=== PATIENT | male | born 1995 | race Caucasian/White ===

== ENCOUNTER 2021-01-11 13:58 | Outpatient (REF) | payer OTHER, SELFPAY ==
[2021-01-12 07:49] LABS: Syphilis Screen Nonreactive (Nonreactive)
[2021-01-12 08:08] LABS: HIV AB/AG Nonreactive (Nonreactive); HIV Num 1 0.08 S/CO (0.00-0.99); ~Hepatitis B Surface Antibody NONREACTIVE (Nonreactive)
[2021-01-12 08:55] LABS: HBc Num1 0.05 S/CO (0.00-0.79); HBsAGNum1 0.19 S/CO (0.00-0.99); Hepatitis B Core Antibody Nonreactive (Nonreactive); Hepatitis B Surface Antigen Negative (Negative); ~HepC Num1 0.06 S/CO (0.00-0.79); ~Hepatitis C Antibody Nonreactive (Nonreactive)
[2021-01-12 09:06] LABS: Hepatitis A Antibody IgM 0.12 Index (0-0.79); ~Hepatitis A Antibody IgM Nonreactive (Nonreactive)
[2021-01-18 13:37] LABS: HSV 1 IgM IFA Negative (Negative); HSV 2 IgM IFA Negative (Negative)
== END 2021-01-11 13:59 | disposition home or self-care (01) ==
LOC: HO.HMGCLDS 13:58
PROVIDERS: PCP Internal Medicine; Visit Provider Hospitalist
DX: Z01.84 Encounter for antibody response examination (principal); Z11.4 Encounter for screening for human immunodeficiency virus [HIV]; Z11.3 Encounter for screening for infections with a predominantly sexual mode of transmission; Z11.59 Encounter for screening for other viral diseases; Z72.51 High risk heterosexual behavior
CPT/HCPCS: 36415; 86695; 86696; 86704; 86706; 86709; 86780; 86803; 87340; 87389

== ENCOUNTER 2021-04-23 16:43 | Outpatient (REF) | payer OTHER, SELFPAY | END 2021-04-23 16:44 | disposition home or self-care (01) | LOC: HO.LNP 16:43 | PROVIDERS: Visit Provider Physician Assistant Medical | DX: J01.90 Acute sinusitis, unspecified (principal); Z20.822 Contact with and (suspected) exposure to COVID-19 | CPT/HCPCS: U0003; U0005 ==

== ENCOUNTER 2024-01-29 13:48 | Emergency (ER) | payer OTHER, SELFPAY ==
--- NOTE | 2024-01-29 14:17 | ED_ITS ---
HPI - Abdominal Pain General Chief Complaint: Abdominal Pain Stated Complaint: abd pain Time Seen by Provider: 01/29/24 14:23 Source: patient Mode of arrival: ambulatory Limitations: no limitations History of Present Illness ED Provider: Rosmery Lozano PA-C HPI narrative: 28 yo male presents to the ER for evaluation of LUQ and epigastric pain that started 1 hour ago and has since subsided after he took pepto bismol. history of multiple episodes similar to this in the past, has followed with GI at [facility] in the past. mild associated nausea but no vomiting. he reports recently diagnosed with covid and has been taking tylenol and motrin around the clock. no current pain at the time of evaluation. no chest pain, SOB, fever, chills, or urinary symptoms. MD elicited complaint: abdominal pain Pertinent past history: other (hx abdominal pain in the past that were attributed to anxiety per his report) Onset (ago): hour(s) Pain Consistency: now resolved Location: epigastric and LUQ Severity: moderate Quality: stabbing Radiation: none Migration to: no migration Exacerbating factors: nothing Relieving factors: medication Context: history of similar episodes Associated symptoms: nausea Related Data Home Medications ?Medication ?Instructions ?Recorded ?Confirmed clobetasol 0.05 % topical cream g topical BID 04/23/21 Previous Rx's ?Medication ?Instructions ?Recorded albuterol sulfate 90 mcg/actuation 1 inh inhalation QID PRN shortness 12/10/21 aerosol inhaler of breath or wheezing #6.7 grams pantoprazole 40 mg tablet,delayed 40 mg PO DAILY #14 tabs 01/29/24 release (Protonix) Allergies Allergy/AdvReac Type Severity Reaction Status Date / Time No Known Allergies Allergy Verified 01/29/24 14:22 Review of Systems Review of Systems Yes all other systems are reviewed and are negative [facility] Social History Social History Patient Tobacco Use Status: Former Tobacco user Advance Directives: No Advance Directives Information Provided: Yes Physical Exam ED Vital Signs: Vital Signs - 24 hr 01/29/24 14:18 Temperature 96.9 F Pulse Rate 96 Respiratory Rate 16 Blood Pressure 144/89 H Pulse Oximetry 97 BMI result Body Mass Index 38.2 Appearance: Alert. Oriented X3. No acute distress. HEENT: normal external inspection Neck: Normal inspection. Neck supple. CVS: Normal heart rate and rhythm. Pulses normal. Respiratory: No respiratory distress. Breath sounds normal. Abdomen: Soft and nontender. +BS x4 Skin: Skin warm and dry. Normal skin color. Normal skin turgor. No rashes. Extremities: No lower extremity edema. No joint swelling. Neuro/psych: Oriented X 3. grossly normal, nonfocal Medical Decision Making Medical Decision Making MDM Narrative: 28 yo male presenting to the ER for evaluation of transient episode of LUQ/epigastric pain that lasted about an hour today. in the setting of COVID + and taking NSAIDs. abd exam today is benign. not having any current pain. low clinical suspicion for pancreatitis, perforation or an acute abdominal process. likely gastritis vs PUD given NSAID use. at this time patient is stable for d/c home with monitoring of symptoms, dietary modifications, stopping NSAID and starting PPI. discussed return precautions and patient agrees w/ plan Differential Diagnosis Differential Diagnoses: The differential diagnosis associated with the presentation includes gastritis, PUD, GERD, pancreatitis, perforation, gallstones, biliary colic External Record Review External record reviewed: Prior outpatient labs Tests considered The following testing was considered but not selected: CBC, CMP, lipase Prescription Management I considered prescription management with: Other (PPI) Chronic Conditions Patient?s care impacted by: Other (abdominal pains) Critical Care Time Critical Care Time Critical Care Time: No Discharge Plan Discharge Clinical Impression: COVID-19 Abdominal pain Qualifiers: Abdominal location: left upper quadrant Qualified Code(s): R10.12 - Left upper quadrant pain Patient Disposition: Home, Self-Care Instructions: Abdominal Pain (ED) Additional Instructions: Your exam & history today were reassuring. Your pain is most likely due to gastritis which is and irritation and inflammation of your stomach lining. Start taking the prescribed medication as directed for this. Stick to a bland diet. Avoid foods high in acid, avoid alcohol and NSAID medications like Aleve, Motrin, Advil or ibuprofen. Follow up with your doctor as needed. Follow up with GI doctor if you symptoms persist despite dietary modifications a nd medication. If you develop new or worsening symptoms call 911 or come back to the ER for further evaluation. Prescriptions: New pantoprazole [Protonix] 40 mg tablet,delayed release (DR/EC) 40 mg PO DAILY Qty: 14 0RF No Action albuterol sulfate 90 mcg/actuation HFA aerosol inhaler 1 inh inhalation QID PRN (Reason: shortness of breath or wheezing) Qty: 6.7 1RF clobetasol 0.05 % cream topical BID Print Language: French
[2024-01-29 14:18] VITALS: BP 144/89; PULSE 96; RESP 16; TEMP 36.1; O2SAT 97; BMI 38.2
[2024-01-29 15:08] VITALS: BP 144/89; PULSE 96; RESP 16; TEMP 36.1; O2SAT 97
== END 2024-01-29 15:00 | disposition home or self-care (01) ==
PROVIDERS: Emergency Provider Emergency Medicine; PCP Internal Medicine
DX: U07.1 COVID-19 (principal); R10.12 Left upper quadrant pain
CPT/HCPCS: 99282; 99283